=== PATIENT | male | born 1970 | race Caucasian/White ===

== ENCOUNTER 2016-06-01 07:51 | Day surgery (SDC) | payer BC ==
[~2016-06-01 07:51] MED LIST: ACETAMINOPHEN500 M4 GT; AUGMENTIN 875-1 EAC2 PO; BACITRACIN1 G1 EXT; CALMOSEPTINE OI71 G1 TOP; CLARITIN10 M6 GT; COMPAZINE10 MG PO; CYCLOBENZAPRINE5 M1 GT; DULCOLAX10 MG; DURAGESIC1 EAC2 TOP; FLOMAX0.4 M1 PO; HYDROCODON-ACET15 M1 PO; IBUPROFEN200 M3 PO; IBUPROFEN600 M1 GT; INDOMETHACIN25 M1 PO; LIDOCAINE-PRILO30 G1 TP; MAGIC MOUTHWASH SSP; MILK OF MAGNESIA GT; MIRALAX119 G1 GT; MORPHINE S GT; MORPHINE S100 MG/5 M PO; MULTIVITAMIN PO; MULTIVITAMINS1 EAC6 PO; NYSTATIN100000 UNI SSP; OCEAN104 ML; ONDANSETRON HCL8 M1 PO; OXYCONTIN10 M2 GT; PEPCID20 M1 GT; PERIDEX118 ML SSP; PRILOSEC OTC20 M1 PO; PRILOSEC20 M1 PO; SENNA-S TABLET1 EAC3 PO; SENNA8.6 M2 GT; TYLENOL EXTRA500 M1 PO; ZINC PO; ZOFRAN ODT4 MG PO; ZOFRAN ODT8 MG PO
[2016-06-01 09:58] LABS: INR 1.5 INR (0.9-1.1); PROTHROMBIN TIME 17.2 SECONDS (9.0-13.6)
== END 2016-06-01 13:45 ==
LOC: RADSP 07:51 → SHSC 07:53
PROVIDERS: Radiology Diagnostic Radiology
PROC: 0D20X0Z Change Drainage Device in Upper Intestinal Tract, External Approach (ICD-10-PCS; principal; 2016-06-01)
DX: K94.29 Other complications of gastrostomy (principal); K21.9 Gastro-esophageal reflux disease without esophagitis; Z85.810 Personal history of malignant neoplasm of tongue; Z98.890 Other specified postprocedural states
CPT/HCPCS: J3010; J7030; Q9967